=== PATIENT | male | born 1975 | race Caucasian/White ===

== ENCOUNTER 2018-01-16 19:40 | Emergency (ER) | payer OTHER ==
[~2018-01-16] VITALS: Ht 172.7 cm; Wt 81.7 kg
--- NOTE | ~2018-01-16 | EKG ---
[place] [address] [employer] [facility] [place] [address] ELECTROCARDIOGRAM REPORT Name: RASHMIMIGUELKEO [facility] [id number] Admission: 01/16/18 Attend Phys: Discharge: 01/16/18 Date of : 73 Report #: [id number] THIS REPORT FOR: //name// [facility] ED Test Date: 2018-01-16 Test Time: 19:46:40 Pat Name: HOWARD CARABALLO Department: Room: Gender: M Machine Shop Repair Technician: SHRADDHA : 1975 Requested By: Chelo Marte Order Number: [id number] MD: Jeovany Lemon Measurements Intervals [place] Rate: 100 P: 43 [place]: 146 QRS: 38 QRSD: 98 T: 12 QT: 348 QTc: 449 Interpretive Statements Sinus tachycardia RSR' in V1 or V2, right VCD No previous ECG available for comparison Electronically Signed On 01-17-2018 8:21:15 CDT by Jeovany Lemon [email or web address] <ELECTRONICALLY SIGNED> By: Jeovany Lemon MD, [facility] 01/17/18 08 1946 45 Jeovany Lemon MD, FACC /EPI
[2018-01-16] MEDS ORDERED: ACCUNEB SO1.25 MG/1 INH (20:39)
[2018-01-16] MEDS ORDERED: FLONASE 0.05%50 MCG NASAL ×2 (20:39→21:31)
[2018-01-16] MEDS ORDERED: ACID REFLUX MED (20:40)
[2018-01-16 21:45] VITALS: BP 140/89
== END 2018-01-16 21:48 | disposition home or self-care (01) ==
LOC: ER 19:40
DX: J30.9 Allergic rhinitis, unspecified (principal); Z88.8 Allergy status to other drugs, medicaments and biological substances

== ENCOUNTER 2018-02-01 14:48 | Emergency (ER) | payer OTHER ==
[~2018-02-01] VITALS: Ht 175.3 cm; Wt 83.9 kg
--- NOTE | ~2018-02-01 | EKG ---
[address] [address] ELECTROCARDIOGRAM REPORT Name: RASHMIHOWARD [facility] [id number] Admission: 02/01/18 Attend Phys: Discharge: 02/01/18 Date of : 73 Report #: [id number] THIS REPORT FOR: //name// [facility] ED Test Date: 2018-02-01 Test Time: 15:02:10 Pat Name: HOWARD CARABALLO Department: Room: Gender: M Net Software Developer: beto : 1975 Requested By: Yoana Morales Order Number: [id number] MD: Jeovany Lemon Measurements Intervals [place] Rate: 103 P: 35 [place]: 147 QRS: 3 QRSD: 102 T: 13 QT: 331 QTc: 434 Interpretive Statements Sinus tachycardia Otherwise no significant abnormality Compared to ECG 01/16/2018 19:46:40 No significant changes Electronically Signed On 02-01-2018 16:42:20 CDT by Jeovany Lemon [email or web address] <ELECTRONICALLY SIGNED> By: Jeovany Lemon MD, [facility] 02/01/18 1642 1502 1502 Jeovany Lemon MD, FACC /EPI
[~2018-02-01 14:48] MED LIST: ACCUNEB SO1.25 MG/1 INH; ACID REFLUX MED; FLONASE 0.05%50 MCG NASAL
[2018-02-01] MEDS ORDERED: VENTOLIN HFA 1818 GM INH (15:19)
[2018-02-01] MEDS ORDERED: CETIRIZINE HCL10 MG PO (15:19)
[2018-02-01] MEDS ORDERED: MEDROLDOSEPACK PO (15:30)
[2018-02-01] MEDS ORDERED: OMEPRAZOLE20 M1 PO (15:30)
[2018-02-01 16:00] VITALS: BP 128/79
== END 2018-02-01 16:01 | disposition home or self-care (01) ==
LOC: ER 14:48
DX: R06.00 Dyspnea, unspecified (principal)